=== PATIENT | female | born 1955 | race Caucasian/White ===

== ENCOUNTER → 2016-06-25 | Outpatient (CLI) | payer OTHER ==
--- NOTE | 2016-06-25 23:27 | SP ---
DATE OF PROCEDURE: 06/25/2016 INDICATION: Outpatient study requested by Dr. Nash for a 61-year-old lady with history of seizur es, started at age 15 and last episode 20 years ago. Currently not on any medications. DESCRIPTION OF PROCEDURE: Routine EEG was recorded digitally. Yxvic-ax-arets and ufmwh-el-fqs rodrigue ages were recorded and reviewed. All impedances were measured and recorded. Cap electrodes were pl aced in accordance with International 10-20 system of electrode placement. FINDINGS: Symmetrically distributed background activity of low to medium amplitude ranging in frequ ency between 10 to 12 cycles per second was seen in the awake state. This activity attenuates with eye opening. Photic stimulation produces no definite driving. Hyperventilation elicits no epilepti form activity. When patient gets drowsy and falls asleep, background rhythm gets slightly less orga nized and at times slows down 4 to 6 cycles per second. No epileptiform activity was seen. No signs of ongoing electrographic seizures or lateralized slowi ng. IMPRESSION: Normal study. Please correlate clinically. Dictated By: SHAINA PATINO/LISETTE Conf#: [id number] DID#: [id number]
== END | disposition home or self-care (01) ==
LOC: EEG 11:22
PROVIDERS: ATTEND Psychiatry & Neurology Neurology
DX: G40.909 Epilepsy, unspecified, not intractable, without status epilepticus (principal)
CPT/HCPCS: 95819

== ENCOUNTER 2016-07-22 07:30 | Inpatient (IN) | payer OTHER ==
[~2016-07-22] VITALS: Ht 157.5 cm; Wt 63.6 kg
[2016-08-18] MEDS ORDERED: ACET500C5 PO (12:44)
[2016-08-18] MEDS ORDERED: NITR-58 PO (12:44)
--- NOTE | 2016-09-15 01:04 | PREOPHP ---
DATE OF ADMISSION: 09/17/2016 The patient is coming in on 09/17/2016 for a surgical procedure. HISTORY OF PRESENT ILLNESS: This is a 61-year-old female, 3, para 1, abortions 2. This pat ient had been referred to me from the clinic for a large uterine fibroid; multifibroid uterus, with pelvic pain, urinary incontinence, stress incontinence, and urgency. The patient has not been sexua lly active. She has been constipated with intractable pelvic pain and she is seeking help. PAST MEDICAL HISTORY: Thyroid disease, hypertension. ALLERGIES: SHE IS NOT ALLERGIC TO ANY MEDICATIONS. MEDICATIONS: She is on: 1. Flonase. 2. Ibuprofen. 3. Levothyroxine 25 mcg daily. 4. Lisinopril. 5. Loratadine. 6. ProAir HFA. 7. Triamcinolone topical cream. FAMILY HISTORY: Hypertension, breast cancer, throat cancer, heart attacks, epilepsy. PHYSICAL EXAMINATION: VITAL SIGNS: Blood pressure 130/70, pulse is 80, respirations 16, she is afebrile, she weighs 140, she is 5 feet 2 inches. HEAD AND NECK: Normal. BREASTS: Soft, nontender, no masses. CHEST: Clear. HEART: Normal sinus rhythm. BACK: Normal. ABDOMEN: Soft. Uterus about 14 weeks size above the symphysis. Uterus is very large with multiple fibroids. Adnexa are nonpalpable. GENITALIA: Normal external genitalia with some vaginal atrophy. EXTREMITIES: Normal. DIAGNOSES: 1. Intractable pelvic pain. 2. Giant fibroid uterus/multiple fibroids. 3. Vaginal atrophy. 4. Menopause. 5. Thyroid disease. 6. Hypertension. 7. Mixed incontinence. PLAN: She is undergoing a total abdominal hysterectomy, bilateral salpingo-oophorectomy. She has b een advised of the possible risks and possible complications of the procedure with her alternatives and options. Written information was provided. She had no more questions and agreed to go ahead wi th the procedure with full understanding and no more questions. Dictated By: LYN MIRZA/LISETTE Conf#: [id number] DID#: [id number]
[2016-09-17] VITALS (29 sets, daily range): BP systolic 116–151; BP diastolic 51–72; PULSE 70–95; RESP 15–37; Ht 157.5 cm; Wt 63.6 kg
[2016-09-17] MEDS ORDERED: LORATADINE PO (07:12)
[2016-09-17] MEDS ORDERED: LEVO25TA59 PO (07:12)
[2016-09-17] MEDS ORDERED: LISI10TA2 PO (07:12)
[2016-09-17] MEDS ORDERED: ALBUTEROL (07:12)
[2016-09-17] MEDS ORDERED: CEFAZOLIN 2 GM/50 ML (PMX) 50 ML IVPB SCH (07:30)
--- NOTE | 2016-09-17 07:45 | HPN ---
Date/Time of Note Date/Time of Note DATE: 09/17/16 TIME: 07:45 Interval H&P Admission Note Pt. seen H&P reviewed: No system changes LYN RUSSO MD Sep 17, 2016 07:45
[2016-09-17 07:49] LABS: ADD SCAN DIFF NO
[2016-09-17] MEDS ORDERED: PROPOFOL 20 ML ONE (07:54)
[2016-09-17] MEDS ORDERED: ROCURONIUM 50 MG INJ ONE (07:54)
[2016-09-17] MEDS ORDERED: LIDOCAINE 1% (MDV) 20 ML INJ ONE (07:54)
[2016-09-17 07:56] LABS: BASOPHILS % 0.6 % (0.0-2.0); EOSINOPHILS # 0.4 10^3/ul (0.0-0.5); EOSINOPHILS % 5.5 % (0.0-7.0); HEMATOCRIT 35.4 % (37.0-47.0); HEMOGLOBIN 11.5 g/dl (12.0-16.0); LYMPHOCYTES # 1.9 10^3/ul (0.8-2.9); LYMPHOCYTES % 29.9 % (15.0-51.0); MEAN CORPUSCULAR HEMOGLOBIN 27.8 pg (29.0-33.0); MEAN CORPUSCULAR HGB CONC 32.5 g/dl (32.0-37.0); MEAN CORPUSCULAR VOLUME 85.7 fl (82.0-101.0); MEAN PLATELET VOLUME 10.6 fl (7.4-10.4); MONOCYTE # 0.4 10^3/ul (0.3-0.9); MONOCYTES % 6.1 % (0.0-11.0); NEUTROPHIL # 3.7 10^3/ul (1.6-7.5); NEUTROPHILS % 57.6 % (39.0-77.0); PLATELET COUNT 172 10^3/UL (140-415); RED BLOOD COUNT 4.13 10^6/ul (4.20-5.40); RED CELL DISTRIBUTION WIDTH 14.3 % (11.5-14.5); WHITE BLOOD COUNT 6.4 10^3/ul (4.8-10.8)
[2016-09-17] MEDS ORDERED: morphine SULFATE/PF (10 MG/10 ML) INJ ONE (07:56)
[2016-09-17] MEDS ORDERED: MIDAZOLAM 1 MG/ML 2 ML INJ ONE (07:59)
[2016-09-17 08:06] LABS: INR 0.95; PROTIME 12.7 Sec (12.2-14.2)
[2016-09-17 08:07] LABS: PARTIAL THROMBOPLASTIN TIME 30.5 Sec (25.0-35.0)
[2016-09-17 08:09] LABS: ALBUMIN 4.8 g/dl (3.3-4.9); ALBUMIN/GLOBULIN RATIO 1.71; BILIRUBIN,INDIRECT 0.9 mg/dl (0-1.1); BILIRUBIN,TOTAL 0.9 mg/dl (0.2-1.3); TOTAL PROTEIN 7.6 g/dl (6.1-8.1)
[2016-09-17] MEDS: LACTATED RINGER'S 1,000 ML IV SCH ×3 (08:13→21:35)
[2016-09-17 08:16] LABS: CALCIUM 9.1 mg/dl (8.4-10.2); CREATININE 0.78 mg/dl (0.44-1.00); POTASSIUM 4.1 mmol/L (3.5-5.1)
[2016-09-17] MEDS ORDERED: PHENYLephrine (100 MCG/ML) 5ML SYG ONE ×2 (08:20→08:55)
[2016-09-17] MEDS ORDERED: CEFAZOLIN 1 GM INJ ONE (08:24)
[2016-09-17] MEDS ORDERED: FAMOTIDINE 20 MG INJ ONE (08:27)
[2016-09-17] MEDS ORDERED: DEXAMETHASONE 4 MG/ML 1 ML INJ ONE (08:27)
[2016-09-17] MEDS ORDERED: ONDANSETRON 4 MG INJ ONE (08:27)
[2016-09-17] MEDS ORDERED: ZOLPIDEM 5 MG TAB PO PRN (08:30)
[2016-09-17] MEDS ORDERED: DIPHENHYDRAMINE 50 MG CAP PO PRN (08:30)
[2016-09-17] MEDS ORDERED: SALMETEROL/FLUTICASONE 250/50 INHA INH ONE (08:30)
[2016-09-17] MEDS ORDERED: HYDROmorphONE 1 MG/ML SYG IV PRN ×2 (08:30→10:30)
[2016-09-17] MEDS ORDERED: BISACODYL (EC) 5 MG TAB PO PRN (08:30)
[2016-09-17] MEDS: KETOROLAC 30 MG INJ IV SCH ×3 (08:30→20:30)
[2016-09-17] MEDS ORDERED: HYDROCODONE/APAP (5/325) TAB PO PRN (08:30)
[2016-09-17] MEDS: LISINOPRIL 10 MG TAB PO SCH (09:00)
[2016-09-17] MEDS ORDERED: LISINOPRIL 10 MG TAB PO SCH (09:00)
[2016-09-17] MEDS ORDERED: SUGAMMADEX SODIUM 200 MG/2 ML VIAL IV ONE (10:00)
--- NOTE | 2016-09-17 10:16 | OPR ---
Date/Time of Note Date/Time of Note DATE: 09/17/16 TIME: 10:12 Operative Report Free Text/Dictation TOTAL ABDOMINAL HYSTERECTOMY BILATERAL SALPINGO OOPHORECTOMY Procedure Date: Sep 17, 2016 Preoperative Diagnosis INTRACTABLE PELVIC PAIN GIANT MULTIFIBROID UTERUS Postoperative Diagnosis SAME Surgeon: LYN RUSSO MD doctor assistant: GAMALIEL CARRION MD Anesthesia: general Anesthesiologist: BOONE VALLES DO Estimated Blood Loss: 100 - 150 ml's Complications: None Pt Condition Post Procedure: stable Disposition: PACU LYN RUSSO MD Sep 17, 2016 10:16
[2016-09-17] MEDS ORDERED: PROCHLORPERAZINE 10 MG INJ IV PRN (10:30)
[2016-09-17] MEDS ORDERED: KETOROLAC 30 MG INJ IV PRN (10:30)
[2016-09-17] MEDS ORDERED: DIPHENHYDRAMINE 50 MG INJ IV PRN (10:30)
[2016-09-17] MEDS ORDERED: ONDANSETRON 4 MG INJ IV PRN (10:30)
[2016-09-17] MEDS ORDERED: NALOXONE (0.4 MG/ML) INJ IV PRN (10:30)
[2016-09-17] MEDS ORDERED: HYDROmorphONE (0.2 MG/ML) 10ML SYG IV ONE (10:35)
[2016-09-17] MEDS: HYDROmorphONE 1 MG/ML SYG IV PRN ×2 (10:39→10:48)
[2016-09-17] MEDS: LORATADINE 10 MG TAB PO SCH (12:45)
[2016-09-17] MEDS: METOCLOPRAMIDE 10 MG TAB PO SCH ×2 (13:38→18:04)
[2016-09-17] MEDS: CEFAZOLIN 1 GM/50 ML (PMX) 50 ML IVPB SCH ×2 (13:40→21:37)
[2016-09-17] MEDS: SALMETEROL/FLUTICASONE 250/50 INHA INH SCH (21:38)
[2016-09-18] VITALS: BP 111/62; PULSE 76; RESP 17
[2016-09-18] MEDS: METOCLOPRAMIDE 10 MG TAB PO SCH ×4 (00:12→17:59)
[2016-09-18] MEDS: KETOROLAC 30 MG INJ IV SCH ×2 (02:30→05:48)
[2016-09-18 04:00] VITALS: BP 115/66; PULSE 76
[2016-09-18 05:25] LABS: ADD SCAN DIFF NO
[2016-09-18 05:31] LABS: BASOPHILS % 0.2 % (0.0-2.0); EOSINOPHILS % 0.2 % (0.0-7.0); HEMATOCRIT 29.8 % (37.0-47.0); HEMOGLOBIN 9.7 g/dl (12.0-16.0); LYMPHOCYTES % 8.9 % (15.0-51.0); MEAN CORPUSCULAR HEMOGLOBIN 27.8 pg (29.0-33.0); MEAN CORPUSCULAR HGB CONC 32.6 g/dl (32.0-37.0); MEAN CORPUSCULAR VOLUME 85.4 fl (82.0-101.0); MEAN PLATELET VOLUME 11.1 fl (7.4-10.4); MONOCYTE # 0.7 10^3/ul (0.3-0.9); MONOCYTES % 6.1 % (0.0-11.0); NEUTROPHIL # 9.9 10^3/ul (1.6-7.5); NEUTROPHILS % 84.3 % (39.0-77.0); PLATELET COUNT 168 10^3/UL (140-415); RED BLOOD COUNT 3.49 10^6/ul (4.20-5.40); RED CELL DISTRIBUTION WIDTH 13.7 % (11.5-14.5); WHITE BLOOD COUNT 11.7 10^3/ul (4.8-10.8)
[2016-09-18] MEDS: LACTATED RINGER'S 1,000 ML IV SCH ×3 (05:44→22:01)
[2016-09-18] MEDS: CEFAZOLIN 1 GM/50 ML (PMX) 50 ML IVPB SCH ×3 (05:46→22:00)
[2016-09-18] MEDS: LEVOTHYROXINE 25 MCG TAB PO SCH (05:48)
[2016-09-18 06:23] LABS: CREATININE 0.68 mg/dl (0.44-1.00); POTASSIUM 4.1 mmol/L (3.5-5.1)
[2016-09-18 07:00] VITALS: BP 118/58; RESP 18
[2016-09-18] MEDS ORDERED: LEVOTHYROXINE 25 MCG TAB PO SCH (07:00)
[2016-09-18] MEDS: SALMETEROL/FLUTICASONE 250/50 INHA INH SCH ×2 (08:58→21:59)
[2016-09-18] MEDS: LISINOPRIL 10 MG TAB PO SCH (08:58)
[2016-09-18] MEDS: LORATADINE 10 MG TAB PO SCH (08:58)
[2016-09-18] MEDS: HYDROCODONE/APAP (5/325) TAB PO PRN ×2 (09:55→16:26)
--- NOTE | 2016-09-18 10:31 | RADRPT ---
Vent Rate: 63 bpm RR Interval: 0 msec [place] Interval: 140 msec QRS Duration: 84 msec QT Interval: 424 msec QTC Interval: 433 msec P-R-T [place]: 26 - 73 - 48 degrees Normal sinus rhythm Normal ECG Electronically Signed By: Kali Martell [id number]
--- NOTE | 2016-09-18 12:12 | PN ---
Date/Time of Note Date/Time of Note DATE: 09/18/16 TIME: 12:10 Assessment/Plan Lines/Catheters IV Catheter Type (from Nrsg): Peripheral IV Summers in Place (from Nrsg): No Subjective 24 Hr Interval Summary feeling good with pressure to urinate. afebrile, stable incision dry healing good Constitutional: BM, ambulates, flatus, improved, no complaints, urine output Feeding: advancing diet Pain Control: well controlled Detailed Summary Eyes: no complaints ENT: no complaints Respiratory: no complaints Cardiovascular: no complaints Gastrointestinal: no complaints Genitourinary: no complaints Musculoskeletal: no complaints Skin: no complaints Neurologic: no complaints Endocrine: no complaints Lymphatic: no complaints Psychological: nl mood/affect, no complaints Immunologic: no complaints Exam/Review of Systems Vital Signs Vitals Vital Signs Date Time Temp Pulse Resp B/P Pulse Ox O2 Delivery O2 Flow Rate FiO2 09/18/16 07:00 98.6 70 18 118/58 97 09/18/16 04:00 Room Air 09/17/16 13:10 2.0 Intake and Output 09/17/16 09/17/16 09/18/16 15:00 23:00 07:00 Intake Total 50 ml 1907 ml 1460 ml Output Total 1750 ml 1400 ml Balance 50 ml 157 ml 60 ml Exam Constitutional: alert, oriented, well developed Psych: nl mood/affect, no complaints Head: atraumatic, normocephalic Eyes: EOMI, nl conjunctiva, nl lids, nl sclera ENMT: mucosa pink and moist, nl external ears & nose, nl lips & teeth, nl nasal mucosa & septum Neck: non-tender, supple Respiratory: clear to auscultation, normal air movement Cardiovascular: nl pulses, regular rate and rhythm Gastrointestinal: nl liver, spleen, non-tender, soft Musculoskeletal: nl extremities to inspection, nl gait and stance Extremities: normal pulses Neurological: WINDING INSPECTOR AND TESTER II-XII intact, nl mental status, nl speech, nl strength Skin: nl turgor, rash or lesions Lymph: nl lymph nodes Results Result Diagram: 09/18/16 0435 09/18/16 0435 LYN RUSSO MD Sep 18, 2016 12:12
[2016-09-18] MEDS ORDERED: BISACODYL (EC) 5 MG TAB PO ONE (12:30)
[2016-09-18] MEDS ORDERED: CEPHALEXIN 500 MG CAP PO SCH (18:00)
[2016-09-18 19:47] VITALS: BP 128/60; RESP 20
[2016-09-19] MEDS: HYDROCODONE/APAP (5/325) TAB PO PRN ×2 (01:28→09:07)
[2016-09-19] MEDS: CEPHALEXIN 500 MG CAP PO SCH ×2 (06:21→11:50)
[2016-09-19] MEDS: METOCLOPRAMIDE 10 MG TAB PO SCH ×3 (06:21→11:49)
[2016-09-19] MEDS: LEVOTHYROXINE 25 MCG TAB PO SCH (06:22)
[2016-09-19 07:38] VITALS: BP 134/63; RESP 18
[2016-09-19] MEDS: LISINOPRIL 10 MG TAB PO SCH (08:24)
[2016-09-19] MEDS: SALMETEROL/FLUTICASONE 250/50 INHA INH SCH (09:05)
[2016-09-19] MEDS: LORATADINE 10 MG TAB PO SCH (09:06)
[2016-09-19 10:12] LABS: ADD SCAN DIFF NO
[2016-09-19 10:27] LABS: BASOPHILS % 0.4 % (0.0-2.0); EOSINOPHILS # 0.1 10^3/ul (0.0-0.5); EOSINOPHILS % 0.5 % (0.0-7.0); HEMATOCRIT 30.8 % (37.0-47.0); LYMPHOCYTES # 1.3 10^3/ul (0.8-2.9); LYMPHOCYTES % 13.7 % (15.0-51.0); MEAN CORPUSCULAR HEMOGLOBIN 27.6 pg (29.0-33.0); MEAN CORPUSCULAR HGB CONC 32.5 g/dl (32.0-37.0); MEAN CORPUSCULAR VOLUME 85.1 fl (82.0-101.0); MONOCYTE # 0.4 10^3/ul (0.3-0.9); MONOCYTES % 4.4 % (0.0-11.0); NEUTROPHIL # 7.5 10^3/ul (1.6-7.5); PLATELET COUNT 174 10^3/UL (140-415); RED BLOOD COUNT 3.62 10^6/ul (4.20-5.40); RED CELL DISTRIBUTION WIDTH 14.1 % (11.5-14.5); WHITE BLOOD COUNT 9.4 10^3/ul (4.8-10.8)
--- NOTE | 2016-09-19 12:18 | PD.PPDC ---
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 she would like to go home with her pain medication and with SOMETHING TO SLEEP. She is stable to go home on keflex prophylactically due to the incision having a small hematoma. Her white count is normal and and she is afebrile incision looks good otherwise. She is being sent home with further instructions of what to do and not to do at home and how to take care of her incision and to call or see me MARY if she has any problems or complications fever pain bleeding or any other problem. Otherwise she will see me in the office in a week. Her blood pressure has been stable with her p.o. 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
[2016-09-19 13:00] VITALS: BP 134/65; PULSE 94; RESP 18
[2016-09-19 17:30] VITALS: BP 133/66; RESP 20
== END 2016-09-19 19:20 | disposition home or self-care (01) | DRG 743 ==
LOC: EDSTATUS 07:30 → REC 09-17 05:38 → MS1 09-17 13:01
PROVIDERS: ADMIT Obstetrics & Gynecology; ATTEND Obstetrics & Gynecology
PROC: 0UTC0ZZ Resection of Cervix, Open Approach (ICD-10-PCS; 2016-09-17)
PROC: 0UT20ZZ Resection of Bilateral Ovaries, Open Approach (ICD-10-PCS; 2016-09-17)
PROC: 0UT70ZZ Resection of Bilateral Fallopian Tubes, Open Approach (ICD-10-PCS; 2016-09-17)
PROC: 0UT90ZZ Resection of Uterus, Open Approach (ICD-10-PCS; principal; 2016-09-17 07:30)
DX: D25.9 Leiomyoma of uterus, unspecified (principal); I10 Essential (primary) hypertension; R10.2 Pelvic and perineal pain; N95.2 Postmenopausal atrophic vaginitis; N39.46 Mixed incontinence; E03.9 Hypothyroidism, unspecified; K59.00 Constipation, unspecified
CPT/HCPCS: 80051; 80053; 82565; 84520; 85025; 85610; 85730; 86850; 86900; 86901; 86920; 87086; 88305; 93005; J0690; J1100; J1170; J1885; J2250; J2274; J2370; J2405; J3010; J7120

== ENCOUNTER 2016-08-18 11:41 | Emergency (ER) | payer OTHER ==
[~2016-08-18] VITALS: Ht 154.9 cm; Wt 58.0 kg
[2016-08-18 11:44] VITALS: Ht 154.9 cm; Wt 58.0 kg
[2016-08-18] MEDS ORDERED: KETOROLAC 15 MG INJ IM STA (12:11)
--- NOTE | 2016-08-18 12:24 | ERD ---
ER Documentation Chief Complaint Date/Time DATE: 08/18/16 TIME: 12:22 Chief Complaint pt bib self with c/o painful and frequent urination, some blood noted HPI Patient is a 61-year-old female with a past medical history of hypertension and hypothyroidism who presents to the ED with dysuria and frequency and urgency 3 days. She states that she has had these symptoms in the past and has been diagnosed with UTIs in the past. She states that she has mild hematuria as well. Denies fever or chills. Denies back pain. Denies chest pain, cough, shortness of breath or difficulty breathing. Denies headache or dizziness or neck pain or stiffness. Denies leg pain or swelling. She states that she is taking cranberry juice for her symptoms which helped minimally 3 days ago. ROS All systems reviewed and are negative except as per history of present illness. Medications Home Meds Active Scripts Acetaminophen* (Tylophen*) 500 Mg Capsule, 1 CAP PO Q6H Y for PAIN AND OR ELEVATED TEMP, #20 CAP Prov:BRENDAN TAVERA PA-C 08/18/16 Nitrofurantoin Monohyd Macrocr* (Macrobid*) 100 Mg Capsr, 100 MG PO BID for 14 Days, CAP Prov:BRENDAN TAVERA PA-C 08/18/16 Allergies Allergies: Coded Allergies: No Known Allergy (Unverified , 08/18/16) PMhx/Soc History of Surgery: Yes (I surgery) Anesthesia Reaction: No Hx Neurological Disorder: No Hx Respiratory Disorders: No Hx Cardiac Disorders: Yes (Hypertension) Hx Psychiatric Problems: No Hx Miscellaneous Medical Probl: Yes (Hypothyroidism) Hx Alcohol Use: No Hx Substance Use: No Hx Tobacco Use: No Smoking Status: Never smoker Physical Exam Vitals Vital Signs Date Time Temp Pulse Resp B/P Pulse Ox O2 Delivery O2 Flow Rate FiO2 08/18/16 11:44 98.3 89 16 148/66 98 Physical Exam GENERAL: Well-developed, well-nourished female. Appears in no acute distress. HEAD: Normocephalic, atraumatic. EYES: Pupils are equally reactive bilaterally. EOMs grossly intact. No conjunctival erythema. ENT: Moist mucous membranes. No uvula deviation. No kissing tonsils. No exudates. NECK: Supple. No lymphadenopathy or thyromegaly. No meningismus. negative kernig. negative brudinski. LUNG: Clear to auscultation bilaterally. No rhonchi, wheezing, rales or coarse breath sounds. HEART: Regular rate and rhythm. No murmurs, rubs or gallops. ABDOMEN: No scars, ecchymosis or rashes noted. Soft, nontender, and nondistended. Positive bowel sounds in all four quadrants. No rebound tenderness , no guarding. (-) McBurneys point tenderness. No CVA tenderness. Mild suprapubic tenderness BACK: No midline tenderness. Extremities: Equal pulses bilaterally. No peripheral clubbing, cyanosis or edema. No unilateral leg swelling. NEUROLOGIC: Alert and oriented. Moving all four extremities. 5/5 strength in all extremities. Normal speech. Steady gait. SKIN: Normal color. Warm and dry. No rashes or lesions. Capillary refill < 2 seconds Results 24 hrs Laboratory Tests Test 08/18/16 12:38 Bedside Urine pH (LAB) 6.0 Bedside Urine Protein (LAB) 1+ Bedside Urine Glucose (UA) Negative Bedside Urine Ketones (LAB) Negative Bedside Urine Blood 3+ Bedside Urine Nitrite (LAB) Negative Bedside Urine Leukocyte Esterase (L 3+ Current Medications Medications (Trade) Dose Ordered Sig/Stanton Route PRN Reason Start Time Stop Time Status Last Admin Dose Admin Acetaminophen (Tylenol Tab) 650 mg ONCE ONCE PO 08/18/16 12:30 08/18/16 12:30 DC Ketorolac Tromethamine (Toradol) 15 mg ONCE STAT IM 08/18/16 12:11 08/18/16 12:12 DC 08/18/16 12:30 Procedures/MDM ER COURSE: I kept the patient and/or family informed of laboratory and diagnostic imaging results throughout the emergency room course. LABORATORY STUDIES Urine shows 3+ leukocytes, 3+ blood with no nitrites. MEDICAL DECISION MAKING: This is a 61-year-old femur who presents with dysuria and urgency 3 days. Vital signs were reviewed. Patient is afebrile. Patient is not hypoxic. Patient is nontoxic or ill-appearing. Patient has a UTI. Toradol 15 mg IM was given to patient. Tolerated well with no adverse reaction. Low suspicion for ovarian torsion, PID, tuboovarian abscess, ectopic , bowel obstruction , pyelonephritis, appendicitis, cervicitis, septic , molar . Low suspicion for septic stone or obstructive stone or nephrolithiasis. DISCHARGE: At this time, patient is stable for discharge and outpatient management with no new complaints during the ER course. Patient was sent home with Tylenol and Macrobid. Patient will be discharged home with instructions to recheck for new or worsening symptoms such as fever, nausea, weakness, LOC and to follow up with primary care in the next 1-2 days. Patient was advised to return to the ER for any new or worsening symptoms. Plan was discussed and patient and/or family understands and agrees. Home instructions were given. Departure Diagnosis: Primary Impression: UTI (urinary tract infection) Urinary tract infection type: site unspecified Hematuria presence: with hematuria Qualified Code: N39.0 - Urinary tract infection with hematuria, site unspecified Condition: Stable BRENDAN TAVERA PA-C August 18, 2016 12:24
[2016-08-18] MEDS ORDERED: ACETAMINOPHEN 325 MG TAB PO ONE (12:30)
[2016-08-18 12:35] LABS: URINE BLOOD (Dip) POC 3+ (NEGATIVE)
[2016-08-18] MEDS ORDERED: NITR-58 PO (12:44)
[2016-08-18] MEDS ORDERED: ACET500C5 PO (12:44)
== END 2016-08-18 13:00 | disposition home or self-care (01) ==
LOC: FTE 11:41
DX: N39.0 Urinary tract infection, site not specified (principal); I10 Essential (primary) hypertension; E03.9 Hypothyroidism, unspecified
CPT/HCPCS: 81003; 87086; 96372; J1885; Z7502